=== PATIENT | male | born 1940 | race Caucasian/White ===

== ENCOUNTER 2018-01-01 09:48 | Inpatient (IN) | payer MEDICARE, OTHER ==
[2017-12-26 11:09] LABS: PRE OP PROTIME 10.4 SECONDS (9.0-12.0)
[2017-12-26 11:16] LABS: ALBUMIN 3.6 G/DL (3.4-5.0); ALBUMIN/GLOBULIN RATIO 0.9 (1.1-1.5); ALKALINE PHOSPHATASE 83 IU/L (46-116); BASOPHILS # (AUTO) 0.1 X10'3 (0-0.2); BLOOD UREA NITROGEN 11 MG/DL (7-18); BUN/CREATININE RATIO 12.2 (5.4-32.0); CALCIUM 8.7 MG/DL (8.5-10.1); CHLORIDE 103 MMOL/L (99-107); EOSINOPHILS # (AUTO) 0.4 X10'3 (0-0.9); EOSINOPHILS % (AUTO) 5.4 % (0-6); LYMPHOCYTES # (AUTO) 1.9 X10'3 (1.1-4.8); LYMPHOCYTES % (AUTO) 28.1 % (21-51); MEAN CORPUSCULAR HEMOGLOBIN 29.8 PG (27.0-31.0); MEAN CORPUSCULAR HGB CONC 33.7 % (33.0-36.5); MEAN CORPUSCULAR VOLUME 88.2 FL (78-98); MEAN PLATELET VOLUME 9.2 FL (7.4-10.4); MONOCYTES # (AUTO) 0.6 X10'3 (0-0.9); MONOCYTES % (AUTO) 8.9 % (2-12); NEUTROPHILS # (AUTO) 3.8 X10'3 (1.8-7.7); NEUTROPHILS % (AUTO) 56.6 % (42-75); PRE OP ALT 22 U/L (30-65); PRE OP ANION GAP 6 (8-16); PRE OP AST 26 U/L (10-37); PRE OP BILIRUB, TOTAL 0.4 MG/DL (0.0-1.0); PRE OP GLUCOSE 120 MG/DL (70-104); PRE OP HEMATOCRIT 43.1 % (42.0-52.0); PRE OP HEMOGLOBIN 14.5 g/dL (14.0-17.9); PRE OP PLATELET COUNT 261 X10'3 (140-440); PRE OP POTASSIUM 3.8 MMOL/L (3.4-5.1); PRE OP SODIUM 140 MMOL/L (135-145); RED BLOOD COUNT 4.88 X10'6 (4.70-6.10); RED CELL DISTRIBUTION WIDTH 13.2 % (11.5-14.5); TOTAL CARBON DIOXIDE 30.8 MMOL/L (24-32); TOTAL PROTEIN 7.4 G/DL (6.4-8.2); eGFR 82 ML/MIN
[~2018-01-01] VITALS: Ht 162.6 cm; Wt 74.8 kg
[2018-01-01] VITALS (20 sets, daily range): BP systolic 119–177; BP diastolic 63–95
[~2018-01-01 09:48] MED LIST: CLOP75TA4 PO; Cefazolin 2GM/50ML dext iso,osmotic IVPB IV ONE; GABA-534 PO; LOVA40TA2 PO; MORP-64 PO; MULTIVITAMIN PO; PRAM0.253 PO; PREG300C PO; famotidine 20mg tablet PO ONE; ringers solution, lacted 1,000 ML IV SCH; tranexamic acid inj. 1,000 MG in normal saline 100ml IV soln 90 ML IV ONE; vancomycin inj 1,500 MG in normal saline 300ml IV soln IV ONE
[2018-01-01] MEDS ORDERED: sevoflurane 250ml liquid IH ONE (13:15)
[2018-01-01] MEDS ORDERED: fentaNYL /PF 50mcg/ml 5ml ampule ONE (13:19)
[2018-01-01] MEDS ORDERED: rocuronium 10mg/ml inj IV ONE (13:21)
[2018-01-01] MEDS ORDERED: LIDOcaine 2% (20mg/ml) 5ml vial ONE (13:21)
[2018-01-01] MEDS ORDERED: propofol inj 20 ML IV ONE (13:21)
[2018-01-01] MEDS: ceFAZolin 1000mg inj ONE ×2 (14:02→14:38)
[2018-01-01] MEDS ORDERED: morphine 10mg/ml inj. ONE (14:18)
[2018-01-01] MEDS ORDERED: dexamethasone sod phosphate 4mg/ml inj. ONE (14:25)
[2018-01-01] MEDS ORDERED: neostigmine methylsulfate 1 MG/ML 10ml vial ONE (15:20)
[2018-01-01] MEDS ORDERED: glycopyrrolate 0.2mg/ml inj ONE (15:20)
[2018-01-01] MEDS ORDERED: ondansetron/PF 4mg/2ml inj ONE (15:21)
[2018-01-01] MEDS ORDERED: ringers solution, lacted 1,000 ML IV SCH ×2 (15:44→16:54)
[2018-01-01] MEDS ORDERED: ondansetron/PF 4mg/2ml inj IV PRN ×2 (15:45→15:50)
[2018-01-01] MEDS ORDERED: HYDROmorphone inj. 0.5 MG/0.5 ML DISP.SYRIN IV PRN ×3 (15:45→15:50)
[2018-01-01] MEDS ORDERED: acetaminophen 325mg tablet PO PRN (15:50)
[2018-01-01] MEDS ORDERED: bisacodyl 10mg suppository rectal RC PRN (15:50)
[2018-01-01] MEDS ORDERED: magnesium hydroxide 30ml (MOM) UD suspension PO PRN (15:50)
[2018-01-01] MEDS ORDERED: diphenhydrAMINE 25mg capsule PO PRN ×2 (15:50)
[2018-01-01] MEDS ORDERED: ceFAZolin 1GM/D5W- ADD-VANTAGE 50 ML IV SCH (16:00)
[2018-01-01] MEDS: morphine 4 MG/ML inj SYRINge IV PRN ×2 (16:11→16:23)
[2018-01-01] MEDS ORDERED: HYDROmorphone 1 mg/ml syringe IV PRN ×2 (16:24→16:30)
[2018-01-01] MEDS ORDERED: acetaminophen 1,000mg/100ml IV 100 ML IV ONE (16:55)
[2018-01-01] MEDS ORDERED: fentaNYL/PF 50MCG/1 ML 2ML syringe IV PRN ×2 (16:55)
[2018-01-01] MEDS: gabapentin 400mg capsule PO SCH ×2 (17:00→22:27)
[2018-01-01] MEDS ORDERED: aspirin 81mg tab.chew PO SCH (17:30)
[2018-01-01] MEDS: pregabalin 75mg capsule PO SCH (19:27)
[2018-01-01] MEDS: potassium Cl 20mEq in NS 1,000 ML IV SCH (19:28)
[2018-01-01] MEDS: ceFAZolin 1GM/D5W- ADD-VANTAGE 50 ML IV SCH (19:28)
[2018-01-01] MEDS ORDERED: gabapentin 400mg capsule PO ONE (19:40)
[2018-01-01] MEDS ORDERED: vancomycin/NS 1 GM ADD-VANTAGE 250 ML IV SCH (20:00)
[2018-01-01] MEDS ORDERED: non-formulary drug (Pregabalin (Lyrica) 1 CAP) PO SCH (20:00)
[2018-01-01] MEDS: morphine ER 15mg tablet PO SCH (22:27)
[2018-01-01] MEDS: pramipexole 0.25mg tablet PO SCH (22:27)
[2018-01-01] MEDS: sennosides 8.6mg tablet PO SCH (22:27)
[2018-01-02 02:00] VITALS: BP 131/59
[2018-01-02] MEDS: ceFAZolin 1GM/D5W- ADD-VANTAGE 50 ML IV SCH (03:22)
[2018-01-02] MEDS: potassium Cl 20mEq in NS 1,000 ML IV SCH ×2 (05:06→14:04)
[2018-01-02] MEDS: oxyCODONE/APAP 10/325mg tablet PO PRN (05:36)
[2018-01-02 06:00] VITALS: BP 131/51
[2018-01-02 06:07] LABS: BASOPHILS % (AUTO) 0.2 % (0-1); EOSINOPHILS # (AUTO) 0.1 X10'3 (0-0.9); EOSINOPHILS % (AUTO) 0.6 % (0-6); HEMATOCRIT 35.7 % (42.0-52.0); HEMOGLOBIN 12.2 g/dl (14.0-17.9); LYMPHOCYTES # (AUTO) 1.5 X10'3 (1.1-4.8); LYMPHOCYTES % (AUTO) 14.1 % (21-51); MEAN CORPUSCULAR HGB CONC 34.2 % (33.0-36.5); MEAN CORPUSCULAR VOLUME 87.8 FL (78-98); MEAN PLATELET VOLUME 9.1 FL (7.4-10.4); MONOCYTES # (AUTO) 1.2 X10'3 (0-0.9); MONOCYTES % (AUTO) 11.5 % (2-12); NEUTROPHILS % (AUTO) 73.6 % (42-75); PLATELET COUNT 237 X10'3 (140-440); RED BLOOD COUNT 4.07 X10'6 (4.70-6.10); RED CELL DISTRIBUTION WIDTH 13.7 % (11.5-14.5); WHITE BLOOD COUNT 10.8 X10'3 (4.5-11.0)
[2018-01-02 06:33] LABS: ALANINE AMINOTRANSFERASE 18 U/L (12-78); ALBUMIN/GLOBULIN RATIO 0.9 (1.1-1.5); ALKALINE PHOSPHATASE 68 IU/L (46-116); ANION GAP 8 (8-16); ASPARTATE AMINO TRANSFERASE 31 U/L (10-37); BILIRUBIN,TOTAL 0.8 MG/DL (0.1-1.0); BLOOD UREA NITROGEN 12 MG/DL (7-18); CALCIUM 7.8 MG/DL (8.5-10.1); CHLORIDE 105 MMOL/L (99-107); CREATININE 1.09 MG/DL (0.60-1.10); GLUCOSE 126 MG/DL (70-104); POTASSIUM 3.8 MMOL/L (3.5-5.1); SODIUM 140 MMOL/L (135-145); TOTAL CARBON DIOXIDE 27.4 MMOL/L (24-32); TOTAL PROTEIN 6.4 G/DL (6.4-8.2); eGFR 66 ML/MIN
[2018-01-02] MEDS: HYDROmorphone 1 mg/ml syringe IV PRN ×4 (07:16→22:12)
[2018-01-02] MEDS: clopidogrel 75mg tablet PO SCH (08:39)
[2018-01-02] MEDS: gabapentin 400mg capsule PO SCH ×4 (08:39→20:22)
[2018-01-02] MEDS: morphine ER 15mg tablet PO SCH ×3 (08:39→20:22)
[2018-01-02] MEDS: pregabalin 75mg capsule PO SCH ×2 (08:42→20:22)
[2018-01-02 10:15] VITALS: BP 128/57
[2018-01-02 14:00] VITALS: BP 106/47
[2018-01-02 18:43] VITALS: BP 127/49
[2018-01-02] MEDS: sennosides 8.6mg tablet PO SCH (20:22)
[2018-01-02] MEDS: pramipexole 0.25mg tablet PO SCH (20:22)
[2018-01-02 22:30] VITALS: BP 149/60
[2018-01-03] MEDS: HYDROmorphone 1 mg/ml syringe IV PRN ×3 (05:26→18:40)
[2018-01-03] MEDS: potassium Cl 20mEq in NS 1,000 ML IV SCH (05:28)
[2018-01-03 06:00] VITALS: BP 126/54
[2018-01-03 06:04] LABS: BASOPHILS % (AUTO) 0.1 % (0-1); EOSINOPHILS # (AUTO) 0.2 X10'3 (0-0.9); EOSINOPHILS % (AUTO) 1.5 % (0-6); HEMATOCRIT 33.3 % (42.0-52.0); HEMOGLOBIN 11.5 g/dl (14.0-17.9); LYMPHOCYTES # (AUTO) 1.3 X10'3 (1.1-4.8); LYMPHOCYTES % (AUTO) 10.9 % (21-51); MEAN CORPUSCULAR HEMOGLOBIN 30.1 PG (27.0-31.0); MEAN CORPUSCULAR HGB CONC 34.4 % (33.0-36.5); MEAN CORPUSCULAR VOLUME 87.5 FL (78-98); MEAN PLATELET VOLUME 9.3 FL (7.4-10.4); MONOCYTES # (AUTO) 1.4 X10'3 (0-0.9); MONOCYTES % (AUTO) 12.2 % (2-12); NEUTROPHILS # (AUTO) 8.9 X10'3 (1.8-7.7); NEUTROPHILS % (AUTO) 75.3 % (42-75); PLATELET COUNT 179 X10'3 (140-440); RED BLOOD COUNT 3.81 X10'6 (4.70-6.10); RED CELL DISTRIBUTION WIDTH 13.4 % (11.5-14.5); WHITE BLOOD COUNT 11.8 X10'3 (4.5-11.0)
[2018-01-03 06:21] LABS: ALANINE AMINOTRANSFERASE 18 U/L (12-78); ALBUMIN 2.7 G/DL (3.4-5.0); ALBUMIN/GLOBULIN RATIO 0.8 (1.1-1.5); ALKALINE PHOSPHATASE 53 IU/L (46-116); ANION GAP 8 (8-16); ASPARTATE AMINO TRANSFERASE 32 U/L (10-37); BILIRUBIN,TOTAL 0.9 MG/DL (0.1-1.0); BLOOD UREA NITROGEN 11 MG/DL (7-18); BUN/CREATININE RATIO 11.5 (5.4-32.0); CALCIUM 8.2 MG/DL (8.5-10.1); CHLORIDE 107 MMOL/L (99-107); CREATININE 0.96 MG/DL (0.60-1.10); GLUCOSE 121 MG/DL (70-104); POTASSIUM 3.7 MMOL/L (3.5-5.1); SODIUM 140 MMOL/L (135-145); TOTAL CARBON DIOXIDE 25.2 MMOL/L (24-32); TOTAL PROTEIN 6.2 G/DL (6.4-8.2); eGFR 76 ML/MIN
[2018-01-03] MEDS: gabapentin 400mg capsule PO SCH ×4 (08:06→20:41)
[2018-01-03] MEDS: clopidogrel 75mg tablet PO SCH (08:06)
[2018-01-03] MEDS: morphine ER 15mg tablet PO SCH ×3 (08:06→20:41)
[2018-01-03] MEDS: pregabalin 75mg capsule PO SCH ×2 (08:06→20:41)
[2018-01-03 10:00] VITALS: BP 126/59
[2018-01-03] MEDS: Protein Smoothie (high protein) 240ml (8oz) cup PO SCH ×2 (17:30→18:43)
[2018-01-03 18:00] VITALS: BP 117/56
[2018-01-03] MEDS: pramipexole 0.25mg tablet PO SCH (20:40)
[2018-01-03] MEDS: sennosides 8.6mg tablet PO SCH (20:41)
[2018-01-03 22:35] VITALS: BP 133/64
[2018-01-04] MEDS: HYDROmorphone 1 mg/ml syringe IV PRN ×3 (01:15→09:51)
[2018-01-04 05:54] LABS: BASOPHILS % (AUTO) 0.3 % (0-1); EOSINOPHILS # (AUTO) 0.3 X10'3 (0-0.9); EOSINOPHILS % (AUTO) 2.2 % (0-6); HEMATOCRIT 32.7 % (42.0-52.0); HEMOGLOBIN 11.2 g/dl (14.0-17.9); LYMPHOCYTES # (AUTO) 1.4 X10'3 (1.1-4.8); LYMPHOCYTES % (AUTO) 11.3 % (21-51); MEAN CORPUSCULAR HEMOGLOBIN 30.1 PG (27.0-31.0); MEAN CORPUSCULAR HGB CONC 34.2 % (33.0-36.5); MEAN CORPUSCULAR VOLUME 88.1 FL (78-98); MEAN PLATELET VOLUME 9.2 FL (7.4-10.4); MONOCYTES # (AUTO) 1.4 X10'3 (0-0.9); MONOCYTES % (AUTO) 11.1 % (2-12); NEUTROPHILS # (AUTO) 9.4 X10'3 (1.8-7.7); NEUTROPHILS % (AUTO) 75.1 % (42-75); PLATELET COUNT 187 X10'3 (140-440); RED BLOOD COUNT 3.71 X10'6 (4.70-6.10); RED CELL DISTRIBUTION WIDTH 13.4 % (11.5-14.5); WHITE BLOOD COUNT 12.5 X10'3 (4.5-11.0)
[2018-01-04 06:00] VITALS: BP 128/77
[2018-01-04 06:10] LABS: ALANINE AMINOTRANSFERASE 16 U/L (12-78); ALBUMIN 2.5 G/DL (3.4-5.0); ALBUMIN/GLOBULIN RATIO 0.6 (1.1-1.5); ALKALINE PHOSPHATASE 60 IU/L (46-116); ANION GAP 7 (8-16); ASPARTATE AMINO TRANSFERASE 26 U/L (10-37); BILIRUBIN,TOTAL 0.9 MG/DL (0.1-1.0); BLOOD UREA NITROGEN 10 MG/DL (7-18); CALCIUM 8.2 MG/DL (8.5-10.1); CHLORIDE 103 MMOL/L (99-107); CREATININE 0.77 MG/DL (0.60-1.10); GLUCOSE 111 MG/DL (70-104); POTASSIUM 3.8 MMOL/L (3.5-5.1); SODIUM 136 MMOL/L (135-145); TOTAL CARBON DIOXIDE 26.3 MMOL/L (24-32); TOTAL PROTEIN 6.4 G/DL (6.4-8.2); eGFR > 90 ML/MIN
[2018-01-04] MEDS: Protein Smoothie (high protein) 240ml (8oz) cup PO SCH (07:30)
[2018-01-04] MEDS: morphine ER 15mg tablet PO SCH (07:48)
[2018-01-04] MEDS: gabapentin 400mg capsule PO SCH (07:48)
[2018-01-04] MEDS: clopidogrel 75mg tablet PO SCH (07:48)
[2018-01-04] MEDS: pregabalin 75mg capsule PO SCH (07:48)
[2018-01-04] MEDS: oxyCODONE/APAP 10/325mg tablet PO PRN (07:54)
[2018-01-04 10:00] VITALS: BP 128/62
[2018-01-04] MEDS ORDERED: oxyCODONE/APAP 10/325mg tablet PO PRN (10:15)
== END 2018-01-04 13:00 | DRG 470 ==
LOC: PAS IN 10:59 → EDSTATUS 15:00 → ORTHO 4S 17:24
PROVIDERS: ADMIT Orthopaedic Surgery; ATTEND Orthopaedic Surgery
PROC: 0SRB0JZ Replacement of Left Hip Joint with Synthetic Substitute, Open Approach (ICD-10-PCS; principal; 2018-01-01 13:15)
DX: M16.12 Unilateral primary osteoarthritis, left hip (principal); I25.10 Atherosclerotic heart disease of native coronary artery without angina pectoris; Z95.5 Presence of coronary angioplasty implant and graft; Z86.73 Personal history of transient ischemic attack (TIA), and cerebral infarction without residual deficits
CPT/HCPCS: 36415; 80053; 85025; 85610; 85730; 86885; 86900; 86901; 86920; 87070; 97110; 97116; 97162; 97530; A6255; A7000; C1758; C1776; J0131; J0690; J1100; J1170; J2001; J2270; J2405; J2704; J2710; J3010; J3370; J3490; J7030; J7120

== ENCOUNTER 2018-04-02 08:49 | Inpatient (IN) | payer MEDICARE, OTHER ==
[2018-03-28 12:30] LABS: BASOPHILS % (AUTO) 0.6 % (0-1); EOSINOPHILS # (AUTO) 0.3 X10'3 (0-0.9); EOSINOPHILS % (AUTO) 3.6 % (0-6); LYMPHOCYTES # (AUTO) 2.3 X10'3 (1.1-4.8); LYMPHOCYTES % (AUTO) 29.9 % (21-51); MEAN CORPUSCULAR HEMOGLOBIN 28.5 PG (27.0-31.0); MEAN CORPUSCULAR HGB CONC 32.8 % (33.0-36.5); MEAN PLATELET VOLUME 9.4 FL (7.4-10.4); MONOCYTES # (AUTO) 0.7 X10'3 (0-0.9); MONOCYTES % (AUTO) 9.3 % (2-12); NEUTROPHILS # (AUTO) 4.3 X10'3 (1.8-7.7); NEUTROPHILS % (AUTO) 56.6 % (42-75); PRE OP HEMATOCRIT 45.1 % (42.0-52.0); PRE OP HEMOGLOBIN 14.8 g/dL (14.0-17.9); PRE OP PLATELET COUNT 306 X10'3 (140-440); RED BLOOD COUNT 5.18 X10'6 (4.70-6.10); RED CELL DISTRIBUTION WIDTH 15.4 % (11.5-14.5)
[2018-03-28 12:46] LABS: ALBUMIN 3.9 G/DL (3.4-5.0); ALKALINE PHOSPHATASE 100 IU/L (46-116); BLOOD UREA NITROGEN 8 MG/DL (7-18); BUN/CREATININE RATIO 10.4 (5.4-32.0); CALCIUM 9.5 MG/DL (8.5-10.1); CHLORIDE 103 MMOL/L (99-107); CREATININE 0.77 MG/DL (0.60-1.10); PRE OP ALT 17 U/L (30-65); PRE OP ANION GAP 6 (8-16); PRE OP AST 24 U/L (10-37); PRE OP BILIRUB, TOTAL 0.4 MG/DL (0.0-1.0); PRE OP GLUCOSE 93 MG/DL (70-104); PRE OP POTASSIUM 3.9 MMOL/L (3.4-5.1); PRE OP SODIUM 140 MMOL/L (135-145); TOTAL CARBON DIOXIDE 31.3 MMOL/L (24-32); TOTAL PROTEIN 7.9 G/DL (6.4-8.2); eGFR > 90 ML/MIN
[2018-03-28 13:15] LABS: PRE OP PROTIME 10.6 SECONDS (9.0-12.0)
[~2018-04-02] VITALS: Ht 167.6 cm; Wt 72.8 kg
[2018-04-02] VITALS (17 sets, daily range): BP systolic 108–163; BP diastolic 59–88
[~2018-04-02 08:49] MED LIST changes: +CLOP75TA35 PO; -CLOP75TA4 PO; -Cefazolin 2GM/50ML dext iso,osmotic IVPB IV ONE; -MORP-64 PO; +MULT-1141 PO; -MULTIVITAMIN PO; +TRAM50TA2 PO; -tranexamic acid inj. 1,000 MG in normal saline 100ml IV soln 90 ML IV ONE
[2018-04-02] MEDS ORDERED: cefazolin/dext.iso 2gm/100 ML IV ONE (09:23)
[2018-04-02] MEDS ORDERED: BUPIVAcaine/dex-water/PF 7.5 mg/ml 2ml ampul ONE (09:38)
[2018-04-02] MEDS ORDERED: ceFAZolin 1000mg inj ONE (09:39)
[2018-04-02] MEDS ORDERED: ROPIVAcaine 0.5% (5mg/ml) 30ml vial ONE (09:40)
[2018-04-02] MEDS ORDERED: tetracaine 1% (10mg/ml) pres. free inj. ONE (09:40)
[2018-04-02] MEDS ORDERED: PRAM0.129 PO (09:53)
[2018-04-02] MEDS ORDERED: dexamethasone sod phosphate 10mg/ml inj ONE (10:15)
[2018-04-02] MEDS ORDERED: sevoflurane 250ml liquid IH ONE (10:15)
[2018-04-02] MEDS ORDERED: tranexamic acid inj. 1,000 MG in normal saline 100ml IV soln 90 ML IV ONE (10:16)
[2018-04-02] MEDS ORDERED: propofol inj 20 ML IV ONE (10:19)
[2018-04-02] MEDS ORDERED: LIDOcaine 2% (20mg/ml) 5ml vial ONE (10:20)
[2018-04-02] MEDS ORDERED: midazolam 2 mg/2 ml injection ONE (10:20)
[2018-04-02] MEDS ORDERED: fentaNYL /PF 50mcg/ml 5ml ampule ONE (10:22)
[2018-04-02] MEDS ORDERED: ePHEDrine 50MG/ML INJ. ONE (10:38)
[2018-04-02] MEDS ORDERED: enalaprilat dihydrate 2.5mg/2ml vial IV PRN (11:10)
[2018-04-02] MEDS ORDERED: ondansetron/PF 4mg/2ml inj IV PRN ×2 (11:10→13:45)
[2018-04-02] MEDS ORDERED: morphine 4 MG/ML inj SYRINge IV PRN ×2 (11:10)
[2018-04-02] MEDS ORDERED: meperidine/PF 25mg/ml syringe IV PRN (11:10)
[2018-04-02] MEDS ORDERED: ringers solution, lacted 1,000 ML IV SCH (11:10)
[2018-04-02] MEDS ORDERED: hydrALAZINE 20mg/ml inj. IV PRN (11:10)
[2018-04-02] MEDS ORDERED: ondansetron/PF 4mg/2ml inj ONE (13:10)
[2018-04-02] MEDS ORDERED: bisacodyl 10mg suppository rectal RC PRN (13:45)
[2018-04-02] MEDS ORDERED: acetaminophen 325mg tablet PO PRN (13:45)
[2018-04-02] MEDS ORDERED: diphenhydrAMINE 25mg capsule PO PRN ×2 (13:45)
[2018-04-02] MEDS ORDERED: HYDROcodone/acetaminophen 10/325mg tab PO PRN (13:45)
[2018-04-02] MEDS ORDERED: HYDROmorphone 1 mg/ml syringe IV PRN (13:45)
[2018-04-02] MEDS ORDERED: magnesium hydroxide 30ml (MOM) UD suspension PO PRN (13:45)
[2018-04-02] MEDS: meperidine/PF 25mg/ml syringe IV PRN ×2 (14:24→14:30)
[2018-04-02] MEDS: HYDROcodone/acetaminophen 10/325mg tab PO PRN ×2 (15:20→20:08)
[2018-04-02] MEDS: ceFAZolin 1GM/D5W- ADD-VANTAGE 50 ML IV SCH (15:22)
[2018-04-02] MEDS: potassium Cl 20mEq in NS 1,000 ML IV SCH (15:22)
[2018-04-02] MEDS: HYDROmorphone 1 mg/ml syringe IV PRN ×2 (17:19→22:08)
[2018-04-02] MEDS: gabapentin 400mg capsule PO SCH ×2 (17:19→20:09)
[2018-04-02] MEDS ORDERED: non-formulary drug (Pregabalin (Lyrica) 1 CAP) PO SCH (20:00)
[2018-04-02] MEDS ORDERED: vancomycin/NS 1 GM ADD-VANTAGE 250 ML IV SCH (20:00)
[2018-04-02] MEDS: pramipexole 0.25mg tablet PO SCH (20:09)
[2018-04-02] MEDS: pregabalin 75mg capsule PO SCH (20:09)
[2018-04-02] MEDS: sennosides 8.6mg tablet PO SCH (20:09)
[2018-04-02] MEDS ORDERED: PRAMIPEXOLE DI HCL PO SCH (21:00)
[2018-04-03] VITALS (7 sets, daily range): BP systolic 101–137; BP diastolic 42–57
[2018-04-03] MEDS: HYDROcodone/acetaminophen 10/325mg tab PO PRN ×5 (00:31→19:20)
[2018-04-03] MEDS: ceFAZolin 1GM/D5W- ADD-VANTAGE 50 ML IV SCH (00:31)
[2018-04-03] MEDS: potassium Cl 20mEq in NS 1,000 ML IV SCH ×2 (04:51→23:08)
[2018-04-03 06:33] LABS: BASOPHILS % (AUTO) 0.1 % (0-1); EOSINOPHILS # (AUTO) 0.2 X10'3 (0-0.9); EOSINOPHILS % (AUTO) 1.6 % (0-6); HEMATOCRIT 33.5 % (42.0-52.0); HEMOGLOBIN 11.2 g/dl (14.0-17.9); LYMPHOCYTES # (AUTO) 1.1 X10'3 (1.1-4.8); LYMPHOCYTES % (AUTO) 8.5 % (21-51); MEAN CORPUSCULAR HEMOGLOBIN 28.8 PG (27.0-31.0); MEAN CORPUSCULAR HGB CONC 33.4 % (33.0-36.5); MEAN CORPUSCULAR VOLUME 86.2 FL (78-98); MEAN PLATELET VOLUME 9.6 FL (7.4-10.4); MONOCYTES # (AUTO) 1.2 X10'3 (0-0.9); MONOCYTES % (AUTO) 9.6 % (2-12); NEUTROPHILS % (AUTO) 80.2 % (42-75); PLATELET COUNT 239 X10'3 (140-440); RED BLOOD COUNT 3.89 X10'6 (4.70-6.10); RED CELL DISTRIBUTION WIDTH 15.1 % (11.5-14.5); WHITE BLOOD COUNT 12.5 X10'3 (4.5-11.0)
[2018-04-03 07:07] LABS: ALANINE AMINOTRANSFERASE 15 U/L (12-78); ALBUMIN 3.1 G/DL (3.4-5.0); ALKALINE PHOSPHATASE 72 IU/L (46-116); ANION GAP 8 (8-16); ASPARTATE AMINO TRANSFERASE 20 U/L (10-37); BILIRUBIN,TOTAL 0.5 MG/DL (0.1-1.0); BLOOD UREA NITROGEN 13 MG/DL (7-18); BUN/CREATININE RATIO 11.8 (5.4-32.0); CALCIUM 7.9 MG/DL (8.5-10.1); CHLORIDE 104 MMOL/L (99-107); GLUCOSE 144 MG/DL (70-104); POTASSIUM 4.4 MMOL/L (3.5-5.1); SODIUM 138 MMOL/L (135-145); TOTAL CARBON DIOXIDE 26.3 MMOL/L (24-32); TOTAL PROTEIN 6.2 G/DL (6.4-8.2); eGFR 65 ML/MIN
[2018-04-03] MEDS: HYDROmorphone 1 mg/ml syringe IV PRN ×3 (07:51→21:49)
[2018-04-03] MEDS: pregabalin 75mg capsule PO SCH ×2 (07:58→19:19)
[2018-04-03] MEDS: clopidogrel 75mg tablet PO SCH (07:59)
[2018-04-03] MEDS: gabapentin 400mg capsule PO SCH ×3 (07:59→21:04)
[2018-04-03] MEDS: sennosides 8.6mg tablet PO SCH (19:19)
[2018-04-03] MEDS: pramipexole 0.25mg tablet PO SCH (19:19)
[2018-04-04] MEDS: HYDROcodone/acetaminophen 10/325mg tab PO PRN (04:18)
[2018-04-04] MEDS ORDERED: oxyCODONE/APAP 10/325mg tablet PO PRN ×2 (05:40)
[2018-04-04 05:41] LABS: BASOPHILS # (AUTO) 0.1 X10'3 (0-0.2); BASOPHILS % (AUTO) 0.6 % (0-1); EOSINOPHILS # (AUTO) 0.5 X10'3 (0-0.9); EOSINOPHILS % (AUTO) 4.2 % (0-6); HEMATOCRIT 33.7 % (42.0-52.0); HEMOGLOBIN 11.2 g/dl (14.0-17.9); LYMPHOCYTES # (AUTO) 1.3 X10'3 (1.1-4.8); LYMPHOCYTES % (AUTO) 11.1 % (21-51); MEAN CORPUSCULAR HEMOGLOBIN 28.7 PG (27.0-31.0); MEAN CORPUSCULAR HGB CONC 33.2 % (33.0-36.5); MEAN CORPUSCULAR VOLUME 86.4 FL (78-98); MEAN PLATELET VOLUME 9.4 FL (7.4-10.4); MONOCYTES # (AUTO) 1.4 X10'3 (0-0.9); MONOCYTES % (AUTO) 12.4 % (2-12); NEUTROPHILS # (AUTO) 8.4 X10'3 (1.8-7.7); NEUTROPHILS % (AUTO) 71.7 % (42-75); PLATELET COUNT 207 X10'3 (140-440); RED CELL DISTRIBUTION WIDTH 15.6 % (11.5-14.5); WHITE BLOOD COUNT 11.7 X10'3 (4.5-11.0)
[2018-04-04] MEDS: potassium Cl 20mEq in NS 1,000 ML IV SCH (05:45)
[2018-04-04 06:04] LABS: ALANINE AMINOTRANSFERASE 11 U/L (12-78); ALBUMIN/GLOBULIN RATIO 0.8 (1.1-1.5); ALKALINE PHOSPHATASE 78 IU/L (46-116); ANION GAP 7 (8-16); ASPARTATE AMINO TRANSFERASE 21 U/L (10-37); BILIRUBIN,TOTAL 0.6 MG/DL (0.1-1.0); BLOOD UREA NITROGEN 10 MG/DL (7-18); BUN/CREATININE RATIO 11.6 (5.4-32.0); CALCIUM 8.6 MG/DL (8.5-10.1); CHLORIDE 106 MMOL/L (99-107); CREATININE 0.86 MG/DL (0.60-1.10); GLUCOSE 109 MG/DL (70-104); POTASSIUM 3.9 MMOL/L (3.5-5.1); SODIUM 141 MMOL/L (135-145); TOTAL CARBON DIOXIDE 27.7 MMOL/L (24-32); TOTAL PROTEIN 6.7 G/DL (6.4-8.2); eGFR 86 ML/MIN
[2018-04-04 07:29] VITALS: BP 138/90
[2018-04-04] MEDS ORDERED: PER10325T PO (07:58)
[2018-04-04] MEDS ORDERED: WALKERFR (08:10)
[2018-04-04] MEDS: clopidogrel 75mg tablet PO SCH (08:22)
[2018-04-04] MEDS: pregabalin 75mg capsule PO SCH (08:22)
[2018-04-04] MEDS: gabapentin 400mg capsule PO SCH (08:22)
[2018-04-04 10:00] VITALS: BP 94/61
== END 2018-04-04 12:30 | disposition home or self-care (01) | DRG 470 ==
LOC: PAS IN 08:49 → EDSTATUS 11:30 → ORTHO 4S 15:05
PROVIDERS: ADMIT Orthopaedic Surgery; ATTEND Orthopaedic Surgery
PROC: 3E0T3BZ Introduction of Anesthetic Agent into Peripheral Nerves and Plexi, Percutaneous Approach (ICD-10-PCS; 2018-04-02)
PROC: 0SRD0J9 Replacement of Left Knee Joint with Synthetic Substitute, Cemented, Open Approach (ICD-10-PCS; principal; 2018-04-02 10:18)
DX: M17.12 Unilateral primary osteoarthritis, left knee (principal); D62 Acute posthemorrhagic anemia; E78.5 Hyperlipidemia, unspecified; I25.10 Atherosclerotic heart disease of native coronary artery without angina pectoris; G62.9 Polyneuropathy, unspecified; G89.29 Other chronic pain; M54.9 Dorsalgia, unspecified; Z79.899 Other long term (current) drug therapy; Z86.73 Personal history of transient ischemic attack (TIA), and cerebral infarction without residual deficits; Z95.5 Presence of coronary angioplasty implant and graft
CPT/HCPCS: 36415; 80053; 85025; 85610; 85730; 86885; 86900; 86901; 86920; 87070; 97110; 97116; 97162; 97530; A6454; A7000; C1713; C1758; C1776; G0378; J0690; J1100; J1170; J2001; J2175; J2250; J2270; J2405; J2704; J2795; J3010; J3370; J3490; J7030; J7120

== ENCOUNTER 2018-05-17 13:50 | Day surgery (SDC) | payer MEDICARE, OTHER ==
[2018-05-15 11:16] LABS: BASOPHILS # (AUTO) 0.1 X10'3 (0-0.2); BASOPHILS % (AUTO) 0.9 % (0-1); EOSINOPHILS # (AUTO) 0.4 X10'3 (0-0.9); EOSINOPHILS % (AUTO) 4.6 % (0-6); LYMPHOCYTES % (AUTO) 21.8 % (21-51); MEAN CORPUSCULAR HEMOGLOBIN 27.9 PG (27.0-31.0); MEAN CORPUSCULAR HGB CONC 32.6 % (33.0-36.5); MEAN CORPUSCULAR VOLUME 85.4 FL (78-98); MEAN PLATELET VOLUME 9.1 FL (7.4-10.4); MONOCYTES % (AUTO) 10.6 % (2-12); NEUTROPHILS # (AUTO) 5.7 X10'3 (1.8-7.7); NEUTROPHILS % (AUTO) 62.1 % (42-75); PRE OP HEMATOCRIT 38.8 % (42.0-52.0); PRE OP HEMOGLOBIN 12.7 g/dL (14.0-17.9); PRE OP PLATELET COUNT 339 X10'3 (140-440); RED BLOOD COUNT 4.55 X10'6 (4.70-6.10); RED CELL DISTRIBUTION WIDTH 15.5 % (11.5-14.5)
[2018-05-15 11:31] LABS: ALBUMIN 3.7 G/DL (3.4-5.0); ALBUMIN/GLOBULIN RATIO 0.9 (1.1-1.5); ALKALINE PHOSPHATASE 115 IU/L (46-116); BLOOD UREA NITROGEN 14 MG/DL (7-18); BUN/CREATININE RATIO 17.5 (5.4-32.0); CALCIUM 9.2 MG/DL (8.5-10.1); CHLORIDE 102 MMOL/L (99-107); PRE OP ALT 14 U/L (30-65); PRE OP ANION GAP 9 (8-16); PRE OP AST 20 U/L (10-37); PRE OP BILIRUB, TOTAL 0.3 MG/DL (0.0-1.0); PRE OP GLUCOSE 97 MG/DL (70-104); PRE OP POTASSIUM 4.3 MMOL/L (3.4-5.1); PRE OP SODIUM 140 MMOL/L (135-145); TOTAL CARBON DIOXIDE 29.2 MMOL/L (24-32); TOTAL PROTEIN 7.9 G/DL (6.4-8.2); eGFR > 90 ML/MIN
[2018-05-15 11:33] LABS: PRE OP INR 1.1 INR; PRE OP PROTIME 10.8 SECONDS (9.0-12.0)
[~2018-05-17] VITALS: Ht 167.6 cm; Wt 70.0 kg
[2018-05-17] VITALS (20 sets, daily range): BP systolic 120–158; BP diastolic 61–97
[~2018-05-17 13:50] MED LIST changes: +PRAM0.129 PO; -PRAM0.253 PO; -vancomycin inj 1,500 MG in normal saline 300ml IV soln IV ONE
[2018-05-17] MEDS ORDERED: midazolam 2 mg/2 ml injection ONE (17:13)
[2018-05-17] MEDS ORDERED: fentaNYL/PF 50MCG/1 ML 2ML syringe ONE (17:13)
[2018-05-17] MEDS ORDERED: sevoflurane 250ml liquid IH ONE (17:18)
[2018-05-17] MEDS ORDERED: diphenhydrAMINE 25mg capsule PO PRN ×2 (17:40)
[2018-05-17] MEDS ORDERED: bisacodyl 10mg suppository rectal RC PRN (17:40)
[2018-05-17] MEDS ORDERED: magnesium hydroxide 30ml (MOM) UD suspension PO PRN (17:40)
[2018-05-17] MEDS ORDERED: ondansetron/PF 4mg/2ml inj IV PRN ×2 (17:40→18:50)
[2018-05-17] MEDS ORDERED: acetaminophen 325mg tablet PO PRN (17:40)
[2018-05-17] MEDS: HYDROmorphone 1 mg/ml syringe IV PRN ×2 (18:08→22:13)
[2018-05-17] MEDS ORDERED: propofol inj 20 ML IV ONE (18:30)
[2018-05-17] MEDS ORDERED: LIDOcaine 1%/PF 5ML 10 MG/ML VIAL ONE (18:30)
[2018-05-17] MEDS ORDERED: dexamethasone sod phosphate 4mg/ml inj. ONE (18:30)
[2018-05-17] MEDS ORDERED: ROPIVAcaine 0.5% (5mg/ml) 30ml vial ONE (18:30)
[2018-05-17] MEDS ORDERED: ringers solution, lacted 1,000 ML IV SCH (18:47)
[2018-05-17] MEDS ORDERED: morphine 4 MG/ML inj SYRINge IV PRN (18:50)
[2018-05-17] MEDS ORDERED: fentaNYL/PF 50MCG/1 ML 2ML syringe IV PRN ×2 (18:50)
[2018-05-17] MEDS ORDERED: non-formulary drug (Pregabalin (Lyrica) 1 CAP) PO SCH (20:00)
[2018-05-17] MEDS: gabapentin 400mg capsule PO SCH (20:29)
[2018-05-17] MEDS: oxyCODONE IR 5mg (immed. release) tablet PO PRN (20:29)
[2018-05-17] MEDS: pregabalin 75mg capsule PO SCH (20:29)
[2018-05-17] MEDS: potassium Cl 20mEq in NS 1,000 ML IV SCH (20:35)
[2018-05-17] MEDS ORDERED: PRAMIPEXOLE DI HCL PO SCH (21:00)
[2018-05-17] MEDS ORDERED: pramipexole 0.25mg tablet PO SCH (21:00)
[2018-05-17] MEDS ORDERED: sennosides 8.6mg tablet PO SCH (21:00)
[2018-05-18] MEDS: oxyCODONE IR 5mg (immed. release) tablet PO PRN ×2 (00:53→05:11)
[2018-05-18 02:00] VITALS: BP 100/54
[2018-05-18] MEDS: HYDROmorphone 1 mg/ml syringe IV PRN (02:55)
[2018-05-18 06:00] VITALS: BP 124/50
[2018-05-18] MEDS: potassium Cl 20mEq in NS 1,000 ML IV SCH (06:59)
[2018-05-18] MEDS: pregabalin 75mg capsule PO SCH (07:24)
[2018-05-18] MEDS: gabapentin 400mg capsule PO SCH ×2 (07:24→14:12)
[2018-05-18] MEDS ORDERED: clopidogrel 75mg tablet PO SCH (08:00)
[2018-05-18 09:16] VITALS: BP 123/72
[2018-05-18] MEDS ORDERED: OXYC-145 PO (15:04)
== END 2018-05-18 15:30 | disposition home or self-care (01) ==
LOC: PAS 13:50 → ORTHO 4S 17:45 → PAS 05-18 15:30
PROVIDERS: ATTEND Orthopaedic Surgery
DX: M24.662 Ankylosis, left knee (principal); M76.892 Other specified enthesopathies of left lower limb, excluding foot; G89.18 Other acute postprocedural pain; M19.90 Unspecified osteoarthritis, unspecified site; M17.12 Unilateral primary osteoarthritis, left knee; D64.9 Anemia, unspecified; I44.7 Left bundle-branch block, unspecified; I25.10 Atherosclerotic heart disease of native coronary artery without angina pectoris; E78.5 Hyperlipidemia, unspecified; H54.62 Unqualified visual loss, left eye, normal vision right eye; H91.8X3 Other specified hearing loss, bilateral; Z86.69 Personal history of other diseases of the nervous system and sense organs; Z79.891 Long term (current) use of opiate analgesic; Z87.891 Personal history of nicotine dependence; Z79.01 Long term (current) use of anticoagulants; Z96.652 Presence of left artificial knee joint; Z96.642 Presence of left artificial hip joint; Z86.73 Personal history of transient ischemic attack (TIA), and cerebral infarction without residual deficits; Z95.5 Presence of coronary angioplasty implant and graft; Z98.890 Other specified postprocedural states; Z79.899 Other long term (current) drug therapy
CPT/HCPCS: 27570; 36415; 64447; 80053; 85025; 85610; 85730; 93005; 97116; 97161; 97530; J1100; J1170; J2001; J2250; J2270; J2704; J3010; G0378; J2795; J7120

== ENCOUNTER 2018-05-31 09:36 | Emergency (ER) | payer MEDICARE, OTHER ==
[~2018-05-31] VITALS: Ht 167.6 cm; Wt 72.7 kg
[~2018-05-31 09:36] MED LIST changes: -LOVA40TA2 PO; -MULT-1141 PO; +OXYC-145 PO; -TRAM50TA2 PO; -famotidine 20mg tablet PO ONE; -ringers solution, lacted 1,000 ML IV SCH
[2018-05-31 09:40] VITALS: BP 177/51
[2018-05-31] MEDS ORDERED: meclizine 12.5mg tablet PO ONE (10:00)
[2018-05-31] MEDS ORDERED: normal saline 1000ML IV soln IVB ONE (10:00)
[2018-05-31 10:08] LABS: BASOPHILS % (AUTO) 0.3 % (0-1); EOSINOPHILS # (AUTO) 0.3 X10'3 (0-0.9); EOSINOPHILS % (AUTO) 3.5 % (0-6); HEMATOCRIT 34.6 % (42.0-52.0); HEMOGLOBIN 11.1 g/dl (14.0-17.9); LYMPHOCYTES # (AUTO) 1.2 X10'3 (1.1-4.8); LYMPHOCYTES % (AUTO) 14.6 % (21-51); MEAN CORPUSCULAR HEMOGLOBIN 28.1 PG (27.0-31.0); MEAN CORPUSCULAR HGB CONC 32.1 % (33.0-36.5); MEAN CORPUSCULAR VOLUME 87.6 FL (78-98); MEAN PLATELET VOLUME 8.7 FL (7.4-10.4); MONOCYTES # (AUTO) 0.6 X10'3 (0-0.9); MONOCYTES % (AUTO) 7.3 % (2-12); NEUTROPHILS # (AUTO) 6.3 X10'3 (1.8-7.7); NEUTROPHILS % (AUTO) 74.3 % (42-75); PLATELET COUNT 448 X10'3 (140-440); RED BLOOD COUNT 3.95 X10'6 (4.70-6.10); RED CELL DISTRIBUTION WIDTH 15.1 % (11.5-14.5); WHITE BLOOD COUNT 8.4 X10'3 (4.5-11.0)
[2018-05-31 10:26] LABS: ALANINE AMINOTRANSFERASE 16 U/L (12-78); ALBUMIN 3.7 G/DL (3.4-5.0); ALBUMIN/GLOBULIN RATIO 0.9 (1.1-1.5); ALKALINE PHOSPHATASE 114 IU/L (46-116); ANION GAP 9 (8-16); ASPARTATE AMINO TRANSFERASE 22 U/L (10-37); BILIRUBIN,TOTAL 0.5 MG/DL (0.1-1.0); BLOOD UREA NITROGEN 21 MG/DL (7-18); BUN/CREATININE RATIO 26.9 (5.4-32.0); CALCIUM 8.5 MG/DL (8.5-10.1); CHLORIDE 103 MMOL/L (99-107); CREATININE 0.78 MG/DL (0.60-1.10); GLUCOSE 109 MG/DL (70-104); POTASSIUM 3.7 MMOL/L (3.5-5.1); SODIUM 140 MMOL/L (135-145); TOTAL CARBON DIOXIDE 27.8 MMOL/L (24-32); TOTAL PROTEIN 7.6 G/DL (6.4-8.2); eGFR > 90 ML/MIN
[2018-05-31 10:44] LABS: INR 1.1 INR; PARTIAL THROMBOPLASTIN TIME 30 SECONDS (22-32); PROTHROMBIN TIME 11.1 SECONDS (9.0-12.0)
[2018-05-31] MEDS ORDERED: MECL-111 PO (11:56)
== END 2018-05-31 12:17 | disposition home or self-care (01) ==
LOC: ER 09:37
DX: R42 Dizziness and giddiness (principal); R06.02 Shortness of breath; Z86.73 Personal history of transient ischemic attack (TIA), and cerebral infarction without residual deficits
CPT/HCPCS: 36415; 71045; 80053; 83880; 84145; 84484; 85025; 85610; 85730; 93005; 96360; 96361; 99284; J7030; J8597; 99283

== ENCOUNTER 2018-08-21 09:38 | Emergency (ER) | payer MEDICARE, OTHER ==
[~2018-08-21] VITALS: Ht 167.6 cm; Wt 72.0 kg
[~2018-08-21 09:38] MED LIST changes: +MECL-111 PO
[2018-08-21 09:41] VITALS: BP 131/71
[2018-08-21] MEDS ORDERED: furosemide 10 MG/1 ML 10ml inj IV ONE (10:30)
[2018-08-21 10:34] LABS: BASOPHILS # (AUTO) 0.1 X10'3 (0-0.2); EOSINOPHILS # (AUTO) 0.3 X10'3 (0-0.9); LYMPHOCYTES # (AUTO) 1.3 X10'3 (1.1-4.8); WHITE BLOOD COUNT 7.5 X10'3 (4.5-11.0)
[2018-08-21 10:36] LABS: BASOPHILS % (AUTO) 1.2 % (0-1); EOSINOPHILS % (AUTO) 3.9 % (0-6); HEMATOCRIT 38.4 % (42.0-52.0); HEMOGLOBIN 12.6 g/dl (14.0-17.9); LYMPHOCYTES % (AUTO) 17.2 % (21-51); MEAN CORPUSCULAR HEMOGLOBIN 26.3 PG (27.0-31.0); MEAN CORPUSCULAR HGB CONC 32.8 g/dL (33.0-36.5); MEAN CORPUSCULAR VOLUME 80.3 FL (78-98); MONOCYTES # (AUTO) 0.8 X10'3 (0-0.9); MONOCYTES % (AUTO) 11.3 % (2-12); NEUTROPHILS % (AUTO) 66.4 % (42-75); PLATELET COUNT 334 X10'3 (140-440); RED BLOOD COUNT 4.79 X10'6 (4.70-6.10); RED CELL DISTRIBUTION WIDTH 15.2 % (11.5-14.5)
[2018-08-21 10:46] LABS: ALANINE AMINOTRANSFERASE 16 U/L (12-78); ALBUMIN 3.6 G/DL (3.4-5.0); ALBUMIN/GLOBULIN RATIO 0.9 (1.1-1.5); ALKALINE PHOSPHATASE 111 IU/L (46-116); ANION GAP 4 (8-16); ASPARTATE AMINO TRANSFERASE 22 U/L (10-37); BILIRUBIN,TOTAL 0.5 MG/DL (0.1-1.0); BLOOD UREA NITROGEN 14 MG/DL (7-18); BUN/CREATININE RATIO 14.7 (5.4-32.0); CALCIUM 8.8 MG/DL (8.5-10.1); CHLORIDE 106 MMOL/L (99-107); CREATININE 0.95 MG/DL (0.60-1.10); GLUCOSE 100 MG/DL (70-104); SODIUM 141 MMOL/L (135-145); TOTAL CARBON DIOXIDE 30.9 MMOL/L (24-32); TOTAL PROTEIN 7.8 G/DL (6.4-8.2); eGFR 77 ML/MIN
[2018-08-21 11:00] LABS: LARGE PLATELETS FEW; PLATELET ESTIMATE NORMAL
[2018-08-21] MEDS ORDERED: POTA10TA19 PO (11:10)
== END 2018-08-21 12:10 | disposition home or self-care (01) ==
LOC: ER 09:39
DX: I50.9 Heart failure, unspecified (principal); Z86.73 Personal history of transient ischemic attack (TIA), and cerebral infarction without residual deficits; Z87.891 Personal history of nicotine dependence; Z56.0 Unemployment, unspecified
CPT/HCPCS: 36415; 71045; 80053; 83880; 84484; 85025; 93005; 96374; 99284; J1940

== ENCOUNTER 2018-09-10 09:03 | Inpatient (IN) | payer MEDICARE, OTHER | END 2018-09-13 13:45 | LOC: ORTHO 4S 09-12 07:03 → PAS IN 09:03 → ORTHO 4S 16:10 | PROC: 0SPW0JZ Removal of Synthetic Substitute from Left Knee Joint, Tibial Surface, Open Approach (ICD-10-PCS; principal; 2018-09-10 10:51) | PROC: 0SRW0J9 Replacement of Left Knee Joint, Tibial Surface with Synthetic Substitute, Cemented, Open Approach (ICD-10-PCS; 2018-09-10 10:51) | PROC: 0SND0ZZ Release Left Knee Joint, Open Approach (ICD-10-PCS; 2018-09-10 10:51) | DX: T84.82XA Fibrosis due to internal orthopedic prosthetic devices, implants and grafts, initial encounter (principal); D62 Acute posthemorrhagic anemia; Z96.652 Presence of left artificial knee joint ==

== ENCOUNTER 2018-09-30 19:16 | Inpatient (IN) | payer MEDICARE, OTHER | END 2018-10-03 14:45 | disposition home or self-care (01) | LOC: ER 19:16 → SUR 3N 10-02 05:41 → ADULT MH 10-01 14:05 → PCU 3S 10-01 14:28 | DX: K92.2 Gastrointestinal hemorrhage, unspecified (principal); I21.A1 Myocardial infarction type 2; I50.9 Heart failure, unspecified ==

== ENCOUNTER 2018-12-21 18:54 | Inpatient (IN) | payer MEDICARE, OTHER ==
[~2018-12-21] VITALS: Ht 167.6 cm; Wt 71.9 kg
[~2018-12-21 18:54] MED LIST changes: +ALPR0.252 PO; +CLOP75TA15 PO; -CLOP75TA35 PO; +FURO-150 PO; +LOVA40TA2 PO; -MECL-111 PO; -OXYC-145 PO; +PANT40TA4 PO; +POTA10TA15 PO; -PRAM0.129 PO; +PRAM0.253 PO; +TRAM50TA2 PO
[2018-12-21 19:58] LABS: ALANINE AMINOTRANSFERASE 109 U/L (12-78); ALBUMIN 2.5 G/DL (3.4-5.0); ALBUMIN/GLOBULIN RATIO 0.8 (1.1-1.5); ALKALINE PHOSPHATASE 115 IU/L (46-116); ANION GAP 5 (8-16); ASPARTATE AMINO TRANSFERASE 85 U/L (10-37); BILIRUBIN,TOTAL 0.5 MG/DL (0.1-1.0); BLOOD UREA NITROGEN 34 MG/DL (7-18); CALCIUM 7.7 MG/DL (8.5-10.1); CHLORIDE 100 MMOL/L (99-107); CREATININE 0.81 MG/DL (0.60-1.10); GLUCOSE 170 MG/DL (70-104); POTASSIUM 4.2 MMOL/L (3.5-5.1); SODIUM 137 MMOL/L (135-145); TOTAL CARBON DIOXIDE 31.7 MMOL/L (24-32); TOTAL PROTEIN 5.6 G/DL (6.4-8.2); eGFR > 90 ML/MIN
[2018-12-21 20:04] LABS: PARTIAL THROMBOPLASTIN TIME 29 SECONDS (22-32)
[2018-12-21] MEDS ORDERED: furosemide 10 MG/1 ML 10ml inj IV ONE (21:50)
[2018-12-21] MEDS ORDERED: LORazepam 2 mg/ml vial IV ONE (21:50)
[2018-12-21] MEDS ORDERED: LIDOcaine 2% 10ml TOPICAL JELLY (Urojet) MM ONE (22:15)
[2018-12-21 22:24] LABS: BASOPHILS % (AUTO) 0.1 % (0-1); NEUTROPHILS # (AUTO) 7.6 X10'3 (1.8-7.7)
[2018-12-21 22:27] LABS: EOSINOPHILS # (AUTO) 0.1 X10'3 (0-0.9); EOSINOPHILS % (AUTO) 0.6 % (0-6); HEMATOCRIT 38.2 % (42.0-52.0); HEMOGLOBIN 11.6 g/dl (14.0-17.9); LYMPHOCYTES % (AUTO) 10.4 % (21-51); MEAN CORPUSCULAR HEMOGLOBIN 21.5 PG (27.0-31.0); MEAN CORPUSCULAR HGB CONC 30.4 g/dL (33.0-36.5); MEAN CORPUSCULAR VOLUME 70.6 FL (78-98); MONOCYTES # (AUTO) 1.2 X10'3 (0-0.9); MONOCYTES % (AUTO) 11.7 % (2-12); NEUTROPHILS % (AUTO) 77.2 % (42-75); PLATELET COUNT 156 X10'3 (140-440); RED BLOOD COUNT 5.41 X10'6 (4.70-6.10); RED CELL DISTRIBUTION WIDTH 20.8 % (11.5-14.5); WHITE BLOOD COUNT 9.9 X10'3 (4.5-11.0)
[2018-12-21 22:53] LABS: LARGE PLATELETS MODERATE; PLATELET ESTIMATE NORMAL
[2018-12-21 22:54] LABS: GIANT PLATELET FEW
[2018-12-21 22:56] LABS: ANISOCYTOSIS 3+; HYPOCHROMASIA 1+; MICROCYTOSIS 1+
[2018-12-21 22:57] LABS: ELLIPTOCYTES 1+; POIKILOCYTOSIS FEW
[2018-12-22] MEDS ORDERED: potassium CL 10mEq/100ml bag 100 ML IV PRN ×2 (00:25)
[2018-12-22] MEDS ORDERED: ondansetron/PF 4mg/2ml inj IV PRN (00:25)
[2018-12-22] MEDS ORDERED: potassium Cl 20 mEq SR tablet PO PRN ×2 (00:25)
[2018-12-22] MEDS ORDERED: magnesium Cl slow-release 64mg tablet PO PRN (00:25)
[2018-12-22] MEDS ORDERED: magnesium 2GM in 50ml NS 50 ML IV PRN (00:25)
[2018-12-22] MEDS ORDERED: magnesium 4gm in 100ml NS 100 ML IV PRN (00:25)
[2018-12-22] MEDS ORDERED: DOCU-148 PO (03:04)
[2018-12-22] MEDS ORDERED: DOXY100T2 PO (03:04)
[2018-12-22] MEDS ORDERED: CARV-50 PO (03:04)
[2018-12-22] MEDS ORDERED: LACT1CAP65 PO (03:04)
[2018-12-22] MEDS ORDERED: META800T87 PO (03:04)
[2018-12-22] MEDS ORDERED: ATOR10TA70 PO (03:04)
[2018-12-22] MEDS ORDERED: ACET-1008 PO (03:04)
[2018-12-22] MEDS ORDERED: MULT-685 PO (03:04)
[2018-12-22] MEDS ORDERED: LISI-600 PO (03:04)
[2018-12-22] MEDS: K and/or MAG REPLACEMENT MC SCH (08:00)
[2018-12-22] MEDS: furosemide 10 MG/1 ML 10ml inj IV SCH ×2 (08:24→20:00)
[2018-12-22] MEDS: heparin, porcine 5000 units/ml vial SQ SCH ×2 (08:27→20:44)
[2018-12-22] MEDS ORDERED: CLOP75TA35 PO (09:27)
[2018-12-22] MEDS ORDERED: LOVA40TA2 PO (09:35)
[2018-12-22] MEDS ORDERED: LISI2.5T2 PO (09:35)
[2018-12-22] MEDS ORDERED: CARV3.12 PO (09:35)
[2018-12-22] MEDS ORDERED: GABA-534 PO (09:39)
--- NOTE | 2018-12-22 10:05 | NUR ---
TC FROM DAUGHTER, SUSHANT, FOR CONDITION REPORT. DAUGHTER STATES SHE LIVES IN [place].
[2018-12-22] MEDS ORDERED: METAXALONE 400 MG PO PRN (12:15)
[2018-12-22] MEDS ORDERED: traMADol 50MG tablet PO PRN (12:15)
[2018-12-22] MEDS ORDERED: carVEDilol 3.125mg tablet PO STA (12:16)
[2018-12-22] MEDS ORDERED: cyclobenzaprine 10mg tablet PO PRN (12:25)
--- NOTE | 2018-12-22 12:25 | NUR ---
ATTEMPTED TO CALL REPORT TO NURSEDEVI, ON PCU. NURSE WILL CALL BACK FOR REPORT WHEN ABLE.
[2018-12-22] MEDS: gabapentin 400mg capsule PO SCH ×2 (12:47→20:44)
--- NOTE | 2018-12-22 12:57 | NUR ---
TO INPATIENT ROOM VIA BED, IN STABLE CONDITION.
--- NOTE | 2018-12-22 13:08 | NUR ---
Pt. arrived already on a hospital bed that the ER staff failed to notice which delayed the pt. from being transferred to the floor. Pt. does not have any complaints. Pt. made comfortable, vitals take, and placed on court monitor.
[2018-12-22 13:12] VITALS: BP 90/55
--- NOTE | 2018-12-22 15:22 | NUR ---
PAGER ID: [phone] MESSAGE: [id number]. Pt. is here from ER and has HR in the 130s-150s. No complaints at this time. Pepe MUÑOZ [phone]
--- NOTE | 2018-12-22 15:49 | NUR ---
PAGER ID: [phone] MESSAGE: [id number] MOONEY. Pt. is here from ER and has HR in the 120s-150s, A-Fib. No complaints at this time. Currently has a Life Vest in place. Pepe MUÑOZ [phone]
[2018-12-22 16:00] VITALS: BP 102/60
[2018-12-22] MEDS: DOXYCYCLINE 100MG CAPSULE PO SCH (17:36)
[2018-12-22 18:00] VITALS: BP 96/70
--- NOTE | 2018-12-22 18:05 | NUR ---
Patient in room PCU 3023B. I have received report from WANDA Cantu and had the opportunity to ask questions and assume patient care. Will continue to monitor
--- NOTE | 2018-12-22 18:25 | NUR ---
Problems reprioritized. Patient report given, questions answered & plan of care reviewed with Laura MUÑOZ and Ludin MUÑOZ.
[2018-12-22] MEDS ORDERED: non-formulary drug (Lactobacillus Acidophilus (Probiotic) 1 CAP) PO SCH (20:00)
[2018-12-22] MEDS ORDERED: non-formulary drug (Pregabalin (Lyrica) 1 CAP) PO SCH (20:00)
[2018-12-22] MEDS ORDERED: DOXYCYCLINE HYCLATE PO SCH (20:00)
[2018-12-22] MEDS: ALPRAZolam 0.25mg tablet PO SCH (20:43)
[2018-12-22] MEDS: docusate sod 100mg capsule PO SCH (20:43)
[2018-12-22] MEDS: pramipexole 0.25mg tablet PO SCH (20:43)
[2018-12-22] MEDS: lactobacillus rhamnosus 10,000 MMU CELLS/CAPSULE PO SCH (20:43)
[2018-12-22] MEDS: atorvastatin 10mg tablet PO SCH (20:43)
[2018-12-22] MEDS: pregabalin 75mg capsule PO SCH (20:45)
[2018-12-22 22:00] VITALS: BP 89/66
[2018-12-23 02:00] VITALS: BP 104/76
--- NOTE | 2018-12-23 05:13 | NUR ---
[place] Medication Administration: For this medication-pass time frame, all medication were reviewed, dispensed, administered and documented per hospital policy by Ludin MUÑOZ. [place] documentation: I have reviewed all interventions, assessments performed and documented by Ludin MUÑOZ.
--- NOTE | 2018-12-23 06:19 | NUR ---
Problems reprioritized. Patient report given, questions answered & plan of care reviewed with Christie MUÑOZ & Bonnie MUÑOZ.
--- NOTE | 2018-12-23 06:33 | NUR ---
Patient in room PCU 3023. I have received report from Laura MUÑOZ and had the opportunity to ask questions and assume patient care.
[2018-12-23 06:46] LABS: ANION GAP 9 (8-16); CHLORIDE 100 MMOL/L (99-107); GLUCOSE 136 MG/DL (70-104); POTASSIUM 4.9 MMOL/L (3.5-5.1); SODIUM 139 MMOL/L (135-145); TOTAL CARBON DIOXIDE 30.1 MMOL/L (24-32)
[2018-12-23 06:47] LABS: ALBUMIN 2.5 G/DL (3.4-5.0); BLOOD UREA NITROGEN 41 MG/DL (7-18); BUN/CREATININE RATIO 34.7 (5.4-32.0); CALCIUM 8.7 MG/DL (8.5-10.1); CREATININE 1.18 MG/DL (0.60-1.10); MAGNESIUM 2.4 MG/DL (1.5-2.4); eGFR 60 ML/MIN
[2018-12-23 06:48] LABS: EOSINOPHILS % (AUTO) 0.1 % (0-6); HEMOGLOBIN 14.1 g/dl (14.0-17.9); MONOCYTES # (AUTO) 0.9 X10'3 (0-0.9); MONOCYTES % (AUTO) 8.8 % (2-12); WHITE BLOOD COUNT 10.4 X10'3 (4.5-11.0)
[2018-12-23 06:50] LABS: BASOPHILS % (AUTO) 0.2 % (0-1); HEMATOCRIT 46.1 % (42.0-52.0); LYMPHOCYTES # (AUTO) 1.3 X10'3 (1.1-4.8); LYMPHOCYTES % (AUTO) 12.8 % (21-51); MEAN CORPUSCULAR HEMOGLOBIN 21.6 PG (27.0-31.0); MEAN CORPUSCULAR HGB CONC 30.6 g/dL (33.0-36.5); MEAN CORPUSCULAR VOLUME 70.5 FL (78-98); MEAN PLATELET VOLUME 10.9 FL (7.4-10.4); NEUTROPHILS # (AUTO) 8.1 X10'3 (1.8-7.7); NEUTROPHILS % (AUTO) 78.1 % (42-75); PLATELET COUNT 182 X10'3 (140-440); RED BLOOD COUNT 6.54 X10'6 (4.70-6.10); RED CELL DISTRIBUTION WIDTH 20.7 % (11.5-14.5)
[2018-12-23 07:00] VITALS: BP 96/67
[2018-12-23 07:38] LABS: ANISOCYTOSIS 3+; LARGE PLATELETS MODERATE; MICROCYTOSIS 1+; PLATELET ESTIMATE NORMAL; POLYCHROMASIA 1+
[2018-12-23 07:39] LABS: ELLIPTOCYTES 1+; SCHISTOCYTES FEW
[2018-12-23] MEDS: atorvastatin 10mg tablet PO SCH ×2 (07:48→21:05)
[2018-12-23] MEDS: gabapentin 400mg capsule PO SCH ×4 (07:49→21:05)
[2018-12-23] MEDS: lactobacillus rhamnosus 10,000 MMU CELLS/CAPSULE PO SCH ×2 (07:49→21:05)
[2018-12-23] MEDS: docusate sod 100mg capsule PO SCH ×2 (07:49→21:05)
[2018-12-23] MEDS: multivitamins, therapeutics tablet PO SCH (07:50)
[2018-12-23] MEDS: DOXYCYCLINE 100MG CAPSULE PO SCH ×2 (07:50→17:04)
[2018-12-23] MEDS: clopidogrel 75mg tablet PO SCH (07:50)
[2018-12-23] MEDS: ALPRAZolam 0.25mg tablet PO SCH ×2 (07:51→20:00)
[2018-12-23] MEDS: heparin, porcine 5000 units/ml vial SQ SCH ×2 (07:51→21:05)
[2018-12-23] MEDS: potassium Cl 20 mEq SR tablet PO SCH (08:00)
[2018-12-23] MEDS: K and/or MAG REPLACEMENT MC SCH (08:00)
[2018-12-23] MEDS ORDERED: MULTIVITS TH W FE OTHER MIN PO SCH (08:00)
[2018-12-23] MEDS ORDERED: non-formulary drug (Lovastatin 1 TAB) PO SCH (08:00)
[2018-12-23] MEDS: carVEDilol 3.125mg tablet PO SCH (08:00)
[2018-12-23] MEDS ORDERED: non-formulary drug (Potassium Chloride 2 TAB) PO SCH (08:00)
[2018-12-23] MEDS: lisinopril 2.5mg tablet PO SCH (08:00)
[2018-12-23] MEDS: furosemide 10 MG/1 ML 10ml inj IV SCH (08:00)
[2018-12-23 11:00] VITALS: BP 94/49
--- NOTE | 2018-12-23 11:47 | NUR ---
Sent page to Dr. Jefferson: PAGER ID: [phone] MESSAGE: [id number] Al Llanos: Can we get a PT eval? Thanks, Christie [phone]
[2018-12-23] MEDS: pregabalin 75mg capsule PO SCH ×2 (12:06→20:00)
[2018-12-23] MEDS: furosemide 20 MG/2 ML vial IV SCH ×2 (12:07→21:04)
[2018-12-23 15:00] VITALS: BP 86/57
--- NOTE | 2018-12-23 18:08 | NUR ---
Problems reprioritized. Patient report given, questions answered & plan of care reviewed with Karyna MUÑOZ.
--- NOTE | 2018-12-23 18:14 | NUR ---
Patient in room PCU 3023. I have received report from Oscar MUÑOZ and had the opportunity to ask questions and assume patient care.
[2018-12-23 19:00] VITALS: BP 104/77
[2018-12-23] MEDS ORDERED: furosemide 20 MG/2 ML vial IV SCH (20:00)
[2018-12-23] MEDS: pramipexole 0.25mg tablet PO SCH (21:05)
[2018-12-23 22:00] VITALS: BP 86/64
[2018-12-24 03:00] VITALS: BP 82/57
[2018-12-24 06:25] LABS: ALBUMIN 2.3 G/DL (3.4-5.0); ANION GAP 9 (8-16); BLOOD UREA NITROGEN 53 MG/DL (7-18); BUN/CREATININE RATIO 36.6 (5.4-32.0); CALCIUM 8.3 MG/DL (8.5-10.1); CHLORIDE 102 MMOL/L (99-107); CREATININE 1.45 MG/DL (0.60-1.10); GLUCOSE 113 MG/DL (70-104); MAGNESIUM 2.4 MG/DL (1.5-2.4); POTASSIUM 5.1 MMOL/L (3.5-5.1); SODIUM 140 MMOL/L (135-145); TOTAL CARBON DIOXIDE 28.8 MMOL/L (24-32); eGFR 47 ML/MIN
--- NOTE | 2018-12-24 06:36 | NUR ---
Problems reprioritized. Patient report given, questions answered & plan of care reviewed with Perla MUÑOZ.
--- NOTE | 2018-12-24 06:50 | NUR ---
Patient in room PCU 3026. I have received report from Amanda MUÑOZ and had the opportunity to ask questions and assume patient care. Patient asleep in bed and arousable to name. All immediate needs met at this time.
[2018-12-24 07:00] VITALS: BP 96/70
[2018-12-24] MEDS: K and/or MAG REPLACEMENT MC SCH (08:00)
[2018-12-24] MEDS: potassium Cl 20 mEq SR tablet PO SCH (08:00)
[2018-12-24] MEDS: furosemide 20 MG/2 ML vial IV SCH ×2 (08:00→21:02)
[2018-12-24] MEDS: lisinopril 2.5mg tablet PO SCH (08:00)
--- NOTE | 2018-12-24 08:27 | NUR ---
12-lead EKG read by Dr. Oscar, ED. No STEMI. Dr. Jefferson paged regarding new onset chest pain.
[2018-12-24 09:18] LABS: BASOPHILS % (AUTO) 0.2 % (0-1); EOSINOPHILS % (AUTO) 0.1 % (0-6); HEMATOCRIT 44.4 % (42.0-52.0); HEMOGLOBIN 13.7 g/dl (14.0-17.9); LYMPHOCYTES % (AUTO) 10.5 % (21-51); MEAN CORPUSCULAR HEMOGLOBIN 21.5 PG (27.0-31.0); MEAN CORPUSCULAR HGB CONC 30.9 g/dL (33.0-36.5); MEAN CORPUSCULAR VOLUME 69.4 FL (78-98); MEAN PLATELET VOLUME 10.3 FL (7.4-10.4); MONOCYTES # (AUTO) 0.9 X10'3 (0-0.9); MONOCYTES % (AUTO) 10.1 % (2-12); NEUTROPHILS # (AUTO) 7.3 X10'3 (1.8-7.7); NEUTROPHILS % (AUTO) 79.1 % (42-75); PLATELET COUNT 170 X10'3 (140-440); WHITE BLOOD COUNT 9.2 X10'3 (4.5-11.0)
[2018-12-24 09:51] LABS: NUCLEATED RED BLOOD CELLS 2 /100WBC (0-0); TOTAL CELLS COUNTED 100
[2018-12-24 09:52] LABS: ANISOCYTOSIS 3+; ELLIPTOCYTES 1+; LARGE PLATELETS FEW; MICROCYTOSIS 1+; PLATELET ESTIMATE NORMAL; POLYCHROMASIA 1+; SCHISTOCYTES FEW
[2018-12-24 09:53] LABS: TARGET CELLS FEW
[2018-12-24] MEDS: heparin, porcine 5000 units/ml vial SQ SCH ×2 (10:07→21:03)
[2018-12-24] MEDS: clopidogrel 75mg tablet PO SCH (10:07)
[2018-12-24] MEDS: ALPRAZolam 0.25mg tablet PO SCH ×2 (10:08→21:02)
[2018-12-24] MEDS: carVEDilol 3.125mg tablet PO SCH (10:08)
[2018-12-24] MEDS: DOXYCYCLINE 100MG CAPSULE PO SCH ×2 (10:12→17:32)
[2018-12-24] MEDS: atorvastatin 10mg tablet PO SCH ×2 (10:12→21:01)
[2018-12-24] MEDS: lactobacillus rhamnosus 10,000 MMU CELLS/CAPSULE PO SCH ×2 (10:13→21:02)
[2018-12-24] MEDS: docusate sod 100mg capsule PO SCH ×2 (10:13→21:01)
[2018-12-24] MEDS: multivitamins, therapeutics tablet PO SCH (10:13)
[2018-12-24] MEDS: pregabalin 75mg capsule PO SCH ×2 (10:21→21:02)
[2018-12-24 11:00] VITALS: BP 99/66
[2018-12-24 15:00] VITALS: BP 97/56
--- NOTE | 2018-12-24 18:25 | NUR ---
Patient in room PCU 3026. I have received report from Dominique MUÑOZ and had the opportunity to ask questions and assume patient care.
--- NOTE | 2018-12-24 18:30 | NUR ---
Problems reprioritized. Patient report given, questions answered & plan of care reviewed with Karyna MUÑOZ. Patient stable at transfer of care.
--- NOTE | 2018-12-24 18:52 | NUR ---
[place] documentation: I have reviewed and agree with all interventions, assessments performed and documented by WANDA Nicole. [place] Medication Administration: For this medication-pass time frame, all medication were reviewed, dispensed, administered and documented per hospital policy by WANDA Nicole.
[2018-12-24 19:00] VITALS: BP 104/49
[2018-12-24] MEDS: pramipexole 0.25mg tablet PO SCH (21:02)
[2018-12-24 23:00] VITALS: BP 97/60
[2018-12-25] VITALS (7 sets, daily range): BP systolic 86–118; BP diastolic 45–81
--- NOTE | 2018-12-25 03:00 | NUR ---
Pt temperature hard to obtain orally or auxiliary. Rectal temp 98.8
[2018-12-25 04:45] LABS: LYMPHOCYTES # (AUTO) 0.9 X10'3 (1.1-4.8); NEUTROPHILS % (AUTO) 82.7 % (42-75); RED CELL DISTRIBUTION WIDTH 21.4 % (11.5-14.5); WHITE BLOOD COUNT 10.6 X10'3 (4.5-11.0)
[2018-12-25 04:48] LABS: BASOPHILS # (AUTO) 0.1 X10'3 (0-0.2); BASOPHILS % (AUTO) 1.3 % (0-1); EOSINOPHILS % (AUTO) 0.1 % (0-6); HEMATOCRIT 43.2 % (42.0-52.0); HEMOGLOBIN 13.4 g/dl (14.0-17.9); LYMPHOCYTES % (AUTO) 8.3 % (21-51); MEAN CORPUSCULAR HEMOGLOBIN 21.6 PG (27.0-31.0); MEAN CORPUSCULAR VOLUME 69.7 FL (78-98); MEAN PLATELET VOLUME 10.2 FL (7.4-10.4); MONOCYTES # (AUTO) 0.8 X10'3 (0-0.9); MONOCYTES % (AUTO) 7.6 % (2-12); NEUTROPHILS # (AUTO) 8.7 X10'3 (1.8-7.7); PLATELET COUNT 156 X10'3 (140-440); RED BLOOD COUNT 6.19 X10'6 (4.70-6.10)
[2018-12-25 05:00] LABS: ALBUMIN 2.4 G/DL (3.4-5.0); ANION GAP 9 (8-16); BLOOD UREA NITROGEN 64 MG/DL (7-18); BUN/CREATININE RATIO 40.5 (5.4-32.0); CALCIUM 8.1 MG/DL (8.5-10.1); CHLORIDE 101 MMOL/L (99-107); CREATININE 1.58 MG/DL (0.60-1.10); GLUCOSE 143 MG/DL (70-104); MAGNESIUM 2.4 MG/DL (1.5-2.4); POTASSIUM 5.2 MMOL/L (3.5-5.1); SODIUM 140 MMOL/L (135-145); TOTAL CARBON DIOXIDE 29.9 MMOL/L (24-32); eGFR 43 ML/MIN
--- NOTE | 2018-12-25 06:31 | NUR ---
Problems reprioritized. Patient report given, questions answered & plan of care reviewed with Dominique MUÑOZ.
--- NOTE | 2018-12-25 06:32 | NUR ---
Patient in room PCU 3026. I have received report from Karyna MUÑOZ and had the opportunity to ask questions and assume patient care. Patient asleep in bed and resting comfortably. All immediate needs met at this time.
--- NOTE | 2018-12-25 06:32 | NUR ---
Patient in room PCU 3022T. I have received report from WANDA Troncoso and had the opportunity to ask questions and assume patient care. Pt in bed, resting comfortably, all needs met at this time.
[2018-12-25 06:55] LABS: ANISOCYTOSIS 3+; HYPOCHROMASIA 1+; MICROCYTOSIS 2+; NUCLEATED RED BLOOD CELLS 1 /100WBC (0-0); PLATELET ESTIMATE NORMAL; POLYCHROMASIA FEW; TARGET CELLS FEW; TOTAL CELLS COUNTED 100
[2018-12-25 06:56] LABS: ELLIPTOCYTES 1+; LARGE PLATELETS FEW; POIKILOCYTOSIS FEW; SPHEROCYTES FEW
[2018-12-25] MEDS: clopidogrel 75mg tablet PO SCH (07:26)
[2018-12-25] MEDS: ALPRAZolam 0.25mg tablet PO SCH ×2 (07:26→20:45)
[2018-12-25] MEDS: lactobacillus rhamnosus 10,000 MMU CELLS/CAPSULE PO SCH ×2 (07:26→20:45)
[2018-12-25] MEDS: multivitamins, therapeutics tablet PO SCH (07:27)
[2018-12-25] MEDS: pregabalin 75mg capsule PO SCH ×2 (07:27→20:45)
[2018-12-25] MEDS: atorvastatin 10mg tablet PO SCH ×2 (07:27→20:45)
[2018-12-25] MEDS: docusate sod 100mg capsule PO SCH ×2 (07:27→20:45)
[2018-12-25] MEDS: heparin, porcine 5000 units/ml vial SQ SCH ×2 (07:28→20:46)
[2018-12-25] MEDS: DOXYCYCLINE 100MG CAPSULE PO SCH ×2 (07:32→17:30)
[2018-12-25] MEDS: furosemide 20 MG/2 ML vial IV SCH ×2 (08:00→20:51)
[2018-12-25] MEDS: potassium Cl 20 mEq SR tablet PO SCH (08:00)
[2018-12-25] MEDS: K and/or MAG REPLACEMENT MC SCH (08:00)
[2018-12-25] MEDS: lisinopril 2.5mg tablet PO SCH (08:00)
[2018-12-25] MEDS: carVEDilol 3.125mg tablet PO SCH (09:24)
--- NOTE | 2018-12-25 11:13 | NUR ---
Paged Dr. New with contact information for pts daughter. PAGER ID: [phone] MESSAGE: RE: [id number] Al Llanos. Daughter (Evelyne) ph number [phone] or [phone]. thank you. Bonnie Cole RN x [phone]
--- NOTE | 2018-12-25 16:33 | NUR ---
Per Dr. New's request, daughter Evelyne called to see what a best time she could be reached to discuss plan of care for pt. Paged Dr. New to give information. PAGER ID: [phone] MESSAGE: Re: [id number] Al Llanos. Per your request, pts bryce Stubbs will be available after 5:00 today at [phone]. Thanks Bonnie Cole RN x [phone]
--- NOTE | 2018-12-25 18:35 | NUR ---
Patient in room PCU 3026. I have received report from Kandy MUÑOZ and had the opportunity to ask questions and assume patient care.
--- NOTE | 2018-12-25 18:35 | NUR ---
Problems reprioritized. Patient report given, questions answered & plan of care reviewed with Jarrett RN. Patient stable at transfer of care.
[2018-12-25] MEDS: pramipexole 0.25mg tablet PO SCH (20:43)
--- NOTE | 2018-12-25 23:06 | NUR ---
PAGER ID: [phone] MESSAGE: [id number], Al Roca- pt consumed small amount of Calazime skin paste from bedside tray, will keep out of reach from now on, will contact poison control. [facility] 1328
--- NOTE | 2018-12-25 23:11 | NUR ---
poison control contacted about Calazime consumption, Kobi zhang pharmacist from poison control informed me that there is only mild GI irritation and laxative effects. will continue to monitor pt and will keep all non food items out of reach from pt.
--- NOTE | 2018-12-26 01:30 | NUR ---
excoriated area noted on posterior side of right lower extremity, superior to ankle, picture placed in chart. optifoam placed over area, will continue to monitor and will share findings with daytime nurse for possible wound consult.
[2018-12-26 03:00] VITALS: BP 122/63
[2018-12-26 06:00] VITALS: BP 93/63
--- NOTE | 2018-12-26 06:00 | NUR ---
Patient in room PCU 3026. I have received report from WANDA Farias and had the opportunity to ask questions and assume patient care.
--- NOTE | 2018-12-26 06:17 | NUR ---
Problems reprioritized. Patient report given, questions answered & plan of care reviewed with Iwona MUÑOZ.
[2018-12-26 06:24] LABS: BASOPHILS # (AUTO) 0.1 X10'3 (0-0.2); LYMPHOCYTES # (AUTO) 0.9 X10'3 (1.1-4.8); MEAN PLATELET VOLUME 10.7 FL (7.4-10.4); MONOCYTES # (AUTO) 0.9 X10'3 (0-0.9); NEUTROPHILS # (AUTO) 9.9 X10'3 (1.8-7.7); WHITE BLOOD COUNT 11.8 X10'3 (4.5-11.0)
[2018-12-26 06:34] LABS: ALBUMIN 2.4 G/DL (3.4-5.0); ANION GAP 13 (8-16); BLOOD UREA NITROGEN 69 MG/DL (7-18); BUN/CREATININE RATIO 49.6 (5.4-32.0); CALCIUM 8.1 MG/DL (8.5-10.1); CHLORIDE 99 MMOL/L (99-107); CREATININE 1.39 MG/DL (0.60-1.10); GLUCOSE 115 MG/DL (70-104); MAGNESIUM 2.6 MG/DL (1.5-2.4); SODIUM 138 MMOL/L (135-145); TOTAL CARBON DIOXIDE 26.4 MMOL/L (24-32); eGFR 49 ML/MIN
[2018-12-26 06:36] LABS: POTASSIUM 6.5 MMOL/L (3.5-5.1)
--- NOTE | 2018-12-26 06:40 | NUR ---
Message to Dr. Dyer regarding critical lab value - PAGER ID: [phone] MESSAGE: Kevin GALLOWAY [id number] - Critical lab value. K+ 6.5. KRISTINA Bustillo, EXT # [id number]
[2018-12-26] MEDS: lisinopril 2.5mg tablet PO SCH ×2 (08:00→09:47)
[2018-12-26] MEDS ORDERED: calcium gluconate inj. 1 GM in normal saline 100ml IV soln 90 ML IV ONE (08:15)
[2018-12-26] MEDS ORDERED: dextrose 50%-water 50ml dispensing syringe IV ONE (08:15)
[2018-12-26] MEDS ORDERED: insulin regular, human 10 units/0.1 ml syringe IV ONE (08:15)
[2018-12-26] MEDS ORDERED: sodium polystyrene sulfonate 15gm/60ml oral suspension PO ONE (08:15)
[2018-12-26] MEDS: furosemide 20 MG/2 ML vial IV SCH ×2 (08:19→20:51)
[2018-12-26] MEDS: heparin, porcine 5000 units/ml vial SQ SCH ×2 (08:19→20:50)
[2018-12-26 08:37] LABS: HEMATOCRIT 46.5 % (42.0-52.0); MEAN CORPUSCULAR HEMOGLOBIN 21.2 PG (27.0-31.0); MEAN CORPUSCULAR HGB CONC 30.2 g/dL (33.0-36.5); MEAN CORPUSCULAR VOLUME 70.3 FL (78-98); NEUTROPHILS % (AUTO) 84.3 % (42-75); PLATELET COUNT 148 X10'3 (140-440); RED BLOOD COUNT 6.61 X10'6 (4.70-6.10); RED CELL DISTRIBUTION WIDTH 22.2 % (11.5-14.5)
[2018-12-26 08:38] LABS: BASOPHILS % (AUTO) 0.6 % (0-1); EOSINOPHILS % (AUTO) 0 % (0-6); LYMPHOCYTES % (AUTO) 7.5 % (21-51); MONOCYTES % (AUTO) 7.6 % (2-12)
[2018-12-26 09:39] LABS: PLATELET ESTIMATE NORMAL; TOTAL CELLS COUNTED 100
[2018-12-26 09:43] LABS: ANISOCYTOSIS 3+; LARGE PLATELETS FEW
[2018-12-26] MEDS: DOXYCYCLINE 100MG CAPSULE PO SCH ×2 (09:43→17:53)
[2018-12-26 09:44] LABS: HYPOGRANULAR PLATELETS FEW
[2018-12-26] MEDS: lactobacillus rhamnosus 10,000 MMU CELLS/CAPSULE PO SCH ×2 (09:44→20:50)
[2018-12-26 09:45] LABS: ELLIPTOCYTES 1+; SPHEROCYTES FEW
[2018-12-26] MEDS: atorvastatin 10mg tablet PO SCH ×2 (09:45→20:50)
[2018-12-26] MEDS: ALPRAZolam 0.25mg tablet PO SCH ×2 (09:45→20:49)
[2018-12-26] MEDS: clopidogrel 75mg tablet PO SCH (09:45)
[2018-12-26 09:46] LABS: POLYCHROMASIA FEW
[2018-12-26 09:48] LABS: MICROCYTOSIS 2+; POIKILOCYTOSIS FEW; TARGET CELLS FEW
[2018-12-26] MEDS: pregabalin 75mg capsule PO SCH ×2 (09:48→20:49)
[2018-12-26] MEDS: carVEDilol 3.125mg tablet PO SCH (09:48)
[2018-12-26] MEDS: docusate sod 100mg capsule PO SCH ×2 (09:49→20:49)
[2018-12-26 11:00] VITALS: BP 86/60
[2018-12-26] MEDS ORDERED: albuterol 2.5 MG/3 ML nebule NEB SCH (12:00)
--- NOTE | 2018-12-26 14:47 | NUR ---
Problem list reprioritized. Outcomes reviewed and updated.
[2018-12-26 15:00] VITALS: BP 84/72
--- NOTE | 2018-12-26 15:52 | NUR ---
Noted that pt with low Doron of 12. 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 Unable to provide protein education at pt documented as A/O x 1 and confused. Pt currently on heart healthy diet with documented 0-25% PO intake throughout LOS not meeting nutrient needs. Pt would benefit from Ensure Enlive TID, notified MD. ONS to be sent pending MD verification in [facility]. Also recommend Ensure pudding TID to optimize PO intake and provide additional protein, d/w dietary. Pt admit with CHF exacerbation with EF 25-30%. Noted that pt with general severe weakness and mild/mod 3+ BLE and 2+ BUE edema, pt meets criteria for severe malnutrition r/t edema, severe weakness, and low PO intake x 5 days, MD notified. Unable to provide malnutrition education at this time d/t current mentation. [facility] 12/24. Will continue to follow. Recommendations: 1) Continue heart healthy diet; consider liberalization given poor PO intake x 5 days 2) Ensure pudding TID 3) Ensure Enlive TID pending MD verification in [facility] 4) Malnutrition/protein ed prior to discharge if appropriate 5) Wt per rx Addendum: 12/26/18 at [address] Amended: Links added.
[2018-12-26 15:59] LABS: POTASSIUM 4.7 MMOL/L (3.5-5.1)
[2018-12-26 16:39] LABS: ALBUMIN 2.6 G/DL (3.4-5.0); ANION GAP 9 (8-16); BLOOD UREA NITROGEN 70 MG/DL (7-18); BUN/CREATININE RATIO 42.2 (5.4-32.0); CALCIUM 8.1 MG/DL (8.5-10.1); CHLORIDE 102 MMOL/L (99-107); CREATININE 1.66 MG/DL (0.60-1.10); GLUCOSE 117 MG/DL (70-104); SODIUM 141 MMOL/L (135-145); TOTAL CARBON DIOXIDE 30.2 MMOL/L (24-32); eGFR 40 ML/MIN
[2018-12-26 16:51] LABS: BASOPHILS % (AUTO) 0.5 % (0-1); EOSINOPHILS % (AUTO) 0.1 % (0-6); MEAN PLATELET VOLUME 10.8 FL (7.4-10.4); MONOCYTES # (AUTO) 0.8 X10'3 (0-0.9)
[2018-12-26 16:52] LABS: HEMATOCRIT 46.6 % (42.0-52.0); HEMOGLOBIN 14.2 g/dl (14.0-17.9); LYMPHOCYTES # (AUTO) 0.8 X10'3 (1.1-4.8); LYMPHOCYTES % (AUTO) 7.8 % (21-51); MEAN CORPUSCULAR HEMOGLOBIN 21.4 PG (27.0-31.0); MEAN CORPUSCULAR HGB CONC 30.5 g/dL (33.0-36.5); MEAN CORPUSCULAR VOLUME 70.1 FL (78-98); MONOCYTES % (AUTO) 7.9 % (2-12); NEUTROPHILS % (AUTO) 83.7 % (42-75); PLATELET COUNT 155 X10'3 (140-440); RED BLOOD COUNT 6.65 X10'6 (4.70-6.10); RED CELL DISTRIBUTION WIDTH 21.4 % (11.5-14.5); WHITE BLOOD COUNT 10.7 X10'3 (4.5-11.0)
--- NOTE | 2018-12-26 17:08 | NUR ---
Unable to set up follow-up appt for CHF DX as it is after business hours. Addendum: 12/26/18 at 1709 by Iwona Del Toro RN Amended: Links added.
[2018-12-26] MEDS: lactose-reduced food (Ensure Enlive) - 237ml bottle PO SCH (18:00)
--- NOTE | 2018-12-26 18:07 | NUR ---
Problems reprioritized. Patient report given, questions answered & plan of care reviewed with Jarrett RN.
--- NOTE | 2018-12-26 18:16 | NUR ---
Patient in room PCU 3026. I have received report from Iwona MUÑOZ and had the opportunity to ask questions and assume patient care.
[2018-12-26 19:00] VITALS: BP 86/74
[2018-12-26] MEDS: pramipexole 0.25mg tablet PO SCH (20:50)
[2018-12-26 23:00] VITALS: BP 80/58
[2018-12-27 03:00] VITALS: BP 90/59
[2018-12-27 05:33] LABS: MEAN CORPUSCULAR HGB CONC 30.5 g/dL (33.0-36.5); NEUTROPHILS # (AUTO) 10.4 X10'3 (1.8-7.7); WHITE BLOOD COUNT 11.9 X10'3 (4.5-11.0)
[2018-12-27 05:35] LABS: BASOPHILS # (AUTO) 0.1 X10'3 (0-0.2); BASOPHILS % (AUTO) 0.9 % (0-1); EOSINOPHILS % (AUTO) 0 % (0-6); HEMATOCRIT 43.4 % (42.0-52.0); HEMOGLOBIN 13.2 g/dl (14.0-17.9); LYMPHOCYTES # (AUTO) 0.7 X10'3 (1.1-4.8); LYMPHOCYTES % (AUTO) 6.1 % (21-51); MEAN CORPUSCULAR HEMOGLOBIN 21.1 PG (27.0-31.0); MEAN CORPUSCULAR VOLUME 69.3 FL (78-98); MEAN PLATELET VOLUME 10.5 FL (7.4-10.4); MONOCYTES # (AUTO) 0.7 X10'3 (0-0.9); MONOCYTES % (AUTO) 5.9 % (2-12); NEUTROPHILS % (AUTO) 87.1 % (42-75); PLATELET COUNT 128 X10'3 (140-440); RED BLOOD COUNT 6.26 X10'6 (4.70-6.10); RED CELL DISTRIBUTION WIDTH 21.6 % (11.5-14.5)
--- NOTE | 2018-12-27 06:18 | NUR ---
Problems reprioritized. Patient report given, questions answered & plan of care reviewed with Elana MUÑOZ.
--- NOTE | 2018-12-27 06:21 | NUR ---
Patient in room PCU 3026. I have received report from Jarrett, WANDA and had the opportunity to ask questions and assume patient care. Patient is currently resting in bed, reports being thirsty, oral swab with water given as patient is currently NPO waiting for swallow eval. No acute distress, will continue to monitor.
[2018-12-27 06:28] LABS: ANISOCYTOSIS 3+; GIANT PLATELET FEW; LARGE PLATELETS MODERATE; MICROCYTOSIS 2+; PLATELET ESTIMATE DECREASED; TOTAL CELLS COUNTED 100
[2018-12-27 06:30] LABS: HYPOCHROMASIA 1+; POLYCHROMASIA FEW; SCHISTOCYTES FEW; SPHEROCYTES 1+
[2018-12-27 06:31] LABS: ACANTHOCYTES FEW
[2018-12-27 07:05] VITALS: BP 91/68
[2018-12-27 07:08] LABS: ALBUMIN 2.4 G/DL (3.4-5.0); ANION GAP 6 (8-16); BLOOD UREA NITROGEN 73 MG/DL (7-18); BUN/CREATININE RATIO 49.7 (5.4-32.0); CALCIUM 7.9 MG/DL (8.5-10.1); CHLORIDE 103 MMOL/L (99-107); CREATININE 1.47 MG/DL (0.60-1.10); GLUCOSE 114 MG/DL (70-104); MAGNESIUM 2.6 MG/DL (1.5-2.4); POTASSIUM 4.3 MMOL/L (3.5-5.1); SODIUM 139 MMOL/L (135-145); TOTAL CARBON DIOXIDE 29.7 MMOL/L (24-32); eGFR 46 ML/MIN
[2018-12-27] MEDS: lactose-reduced food (Ensure Enlive) - 237ml bottle PO SCH ×2 (08:00→13:44)
[2018-12-27] MEDS: docusate sod 100mg capsule PO SCH (08:22)
[2018-12-27] MEDS: carVEDilol 3.125mg tablet PO SCH (08:37)
[2018-12-27] MEDS: lisinopril 2.5mg tablet PO SCH (08:37)
[2018-12-27] MEDS: clopidogrel 75mg tablet PO SCH (08:37)
[2018-12-27] MEDS: atorvastatin 10mg tablet PO SCH (08:37)
[2018-12-27] MEDS: ALPRAZolam 0.25mg tablet PO SCH (08:37)
[2018-12-27] MEDS: pregabalin 75mg capsule PO SCH (08:37)
[2018-12-27] MEDS: heparin, porcine 5000 units/ml vial SQ SCH (08:38)
[2018-12-27] MEDS: lactobacillus rhamnosus 10,000 MMU CELLS/CAPSULE PO SCH (08:38)
--- NOTE | 2018-12-27 09:44 | NUR ---
Dr. New at bedside, informed of difference between electrical and peripheral pulses (130s/60s) and said she will consider what actions to take, if any.
[2018-12-27] MEDS ORDERED: traMADol 50MG tablet PO PRN (09:45)
--- NOTE | 2018-12-27 11:22 | NUR ---
PAGER ID: [phone] MESSAGE: WANDA Huitron, [id number], family Romi is requesting change in code status to full code.
[2018-12-27 11:26] VITALS: BP 103/70
--- NOTE | 2018-12-27 11:42 | NUR ---
family requested to change patient code status to full code and Doctor u was paged, however Diana manager area spoke to the family and provided education regarding use of the life vest while being a DNR and family then decided to maintain the DNR status. Doctor u was again paged with the updated family wishes.
--- NOTE | 2018-12-27 14:30 | NUR ---
received discharge orders to send patient to [facility]. Patient belongings gathered, report called to Tamra at [facility], IV removed, villareal to be kept in place, Patient stable at time of discharge.
[2018-12-27] MEDS ORDERED: pregabalin 75mg capsule PO SCH (20:00)
[2018-12-27] MEDS ORDERED: pramipexole 0.25mg tablet PO SCH (21:00)
[2018-12-28] MEDS ORDERED: furosemide 20 MG/2 ML vial IV SCH (08:00)
[2018-12-28] MEDS ORDERED: CefTRIAXone 2gm/D5W 50ml 50 ML IV SCH (08:00)
== END 2018-12-27 15:02 | DRG 291 ==
LOC: ER 18:55 → PCU 3S 12-22 13:11
PROVIDERS: ADMIT Internal Medicine; ATTEND Internal Medicine
DX: I50.23 Acute on chronic systolic (congestive) heart failure (principal); E43 Unspecified severe protein-calorie malnutrition; L97.929 Non-pressure chronic ulcer of unspecified part of left lower leg with unspecified severity; I25.10 Atherosclerotic heart disease of native coronary artery without angina pectoris; N18.9 Chronic kidney disease, unspecified; E78.5 Hyperlipidemia, unspecified; E87.5 Hyperkalemia; F03.90 Unspecified dementia, unspecified severity, without behavioral disturbance, psychotic disturbance, mood disturbance, and anxiety; L89.322 Pressure ulcer of left buttock, stage 2; L89.312 Pressure ulcer of right buttock, stage 2; I34.0 Nonrheumatic mitral (valve) insufficiency; Z96.659 Presence of unspecified artificial knee joint; L89.152 Pressure ulcer of sacral region, stage 2; F41.9 Anxiety disorder, unspecified; G62.9 Polyneuropathy, unspecified; M19.90 Unspecified osteoarthritis, unspecified site; Z66 Do not resuscitate; Z80.8 Family history of malignant neoplasm of other organs or systems; Z86.73 Personal history of transient ischemic attack (TIA), and cerebral infarction without residual deficits; Z79.899 Other long term (current) drug therapy
CPT/HCPCS: 36415; 71045; 80048; 80053; 83735; 83880; 84132; 84145; 84484; 85025; 85610; 85730; 87081; 92508; 92616; 93005; 96374; 96375; 97110; 97161; 97530; 99285; G0378; J0610; J1644; J1815; J1940; J2060